=== PATIENT | male | born 1995 | race Caucasian/White ===

== ENCOUNTER 2018-03-23 19:26 | Emergency (ER) | payer OTHER ==
[2018-03-23] MEDS: LIDOCAINE 2% (MDV) 20 ML INJ INJ (20:54)
== END 2018-03-23 22:19 | disposition home or self-care (01) ==
LOC: FTE 19:26
DX: S01.111A Laceration without foreign body of right eyelid and periocular area, initial encounter (principal); F17.210 Nicotine dependence, cigarettes, uncomplicated; W50.0XXA Accidental hit or strike by another person, initial encounter; Y92.9 Unspecified place or not applicable
CPT/HCPCS: 12011; 70480; 99284-25

== ENCOUNTER 2018-07-07 22:44 | Emergency (ER) | payer OTHER | END 2018-07-08 02:47 | disposition home or self-care (01) | LOC: FTE 22:44 | DX: S01.111A Laceration without foreign body of right eyelid and periocular area, initial encounter (principal); W22.8XXA Striking against or struck by other objects, initial encounter; Y92.9 Unspecified place or not applicable | CPT/HCPCS: 12011; 99283-25 ==